=== PATIENT | female | born 1945 | race Caucasian/White ===

== ENCOUNTER 2017-06-05 02:49 | Inpatient (IN) | payer OTHER, MEDICARE ==
[~2017-06-05] VITALS: Ht 154.9 cm; Wt 64.0 kg
[~2017-06-05 02:49] MED LIST: ASPIRIN EC81 M1 PO; DILTIAZEM 24HR120 MG PO; LIVALO2 M1 PO; OTEZLA30 M2 PO; VALSARTAN80 M1 PO; VITAMIN C1000 M4 PO; ZINC CHELATED50 MG PO; ZINC50 M2 PO
[2017-06-05] MEDS ORDERED: CIPRO500 M1 PO (07:31)
--- NOTE | 2017-06-05 10:34 | Admission Core Measures ---
Acute Coronary Syndrome (CM) ACS Core Measures Acute Coronary Syndrome Diagnosis No Congestive Heart Failure (NEW) CHF Core Measures Congestive Heart Failure Diagnosis No Cerebrovascular Accident (NEW) CVA Core Measures CVA/TIA Diagnosis No Venous Thromboembolism VTE Core Susy (View Protocol) VTE Risk Factors Surgery No Mechanical VTE Prophylaxis d/t N/A MechProphylax Ordered No VTE Pharm Prophylaxis d/t NA PharmProphylax ordered Problem List As ranked by this Provider includes Assessment & Plan 1. Unilateral primary osteoarthritis, left hip HOME MEDS Home Med List Apremilast (Otezla) 30 MG TABLET 1 TAB PO BID PSORIASIS (Reported) Ascorbic Acid (Vitamin C) 1,000 MG TABLET 1 TAB PO DAILY SUPPLEMENT (Reported ) Aspirin (Ecotrin*) 81 MG TABLET.DR 1 TAB PO DAILY HEART/BLOOD (Reported) Ciprofloxacin HCl (Cipro) 500 MG TABLET 1 TAB PO BID UTI (Reported) Diltiazem HCl (Diltiazem 24HR ER) 120 MG CAP.ER.24H 1 CAP PO DAILY BP ( Reported) Pitavastatin Calcium (Livalo) 2 MG TABLET 1 TAB PO DAILY CHOLESTEROL ( Reported) Valsartan 80 MG TABLET 1 TAB PO DAILY BP (Reported) ZINC 50 MG TABLET 1 TAB PO DAILY SUPPLEMENT (Reported)
[2017-06-05] MEDS ORDERED: MS CONTIN15 M3 PO (10:36)
[2017-06-05] MEDS ORDERED: COLACE100 M1 PO (10:36)
[2017-06-05] MEDS ORDERED: MIRALAX17 G1 PO (10:36)
[2017-06-05] MEDS ORDERED: PRILOSEC OTC20 M1 PO (10:36)
[2017-06-05] MEDS ORDERED: ASPIRIN EC325 M2 PO (10:36)
[2017-06-05] MEDS ORDERED: DILAUDID2 M1 PO (10:36)
--- NOTE | 2017-06-05 10:40 | Patient Discharge Instructions ---
Discharge Instructions General Discharge Information You were seen/treated for: Left hip pain related to unilateral primary osteoarthritis You had these procedures: Left total hip replacement Watch for these problems: Increasing pain despite the use of pain medication Increasing redness, warmth or swelling Drainage of any type from incision Inability to bear weight on operative leg Persistent nausea and vomiting Fever greater than 101.5 degrees Do not soak the wound: Yes No bath, but you may shower: Yes Other wound care: Please keep wound clean and dry. No ointments or lotions of any type on or near incision at any time. No exceptions. Your dressing will be changed by your nurse on the second day after your surgery. Daily dry dressing changes are recommended each day thereafter. Do not soak your wound in a bath at any time until otherwise indicated by your surgeon. You may shower, please dry wound immediately after shower with a clean towel. Special Instructions: Aspirin: You are taking this medication to help prevent blood clot formation. Please take with food to protect your stomach lining. Please take as directed. Constipation: Pain medication can cause constipation. Dr. Elkins has recommended that you take Colace and miralax each day. You may discontinue this medication if you develop loose stool or diarrhea. If you wish to continue this medication, it is available over the counter. If you are unable to move your bowels after several days, if you are unable to pass gas and are developing bloating, nausea, or vomiting as a result, please contact your doctor. Diet Continue normal diet: Yes Recommended Diet: Regular Activity Full Activity/No Limits: No Activity Self Limited: Yes Pounds, do NOT lift more than: 10 Activity Limited to: Weight bear as tolerated Acute Coronary Syndrome Inclusion Criteria At DC or during hospital stay patient has or had the following: ACS DIAGNOSIS No Discharge Core Measures Meds if any: Prescribed or Continued at Discharge Meds if any: NOT Prescribed or Continued at Discharge Congestive Heart Failure Inclusion Criteria At DC or during hospital stay patient has or had the following: CHF DIAGNOSIS No Discharge Core Measures Meds if any: Prescribed or Continued at Discharge Meds if any: NOT Prescribed or Continued at Discharge Cerebrovascular accident Inclusion Criteria At DC or during hospital stay patient has or had the following: CVA/TIA Diagnosis No Discharge Core Measures Meds if any: Prescribed or Continued at Discharge Meds if any: NOT Prescribed or Continued at Discharge Venous thromboembolism Inclusion Criteria VTE Diagnosis No VTE Type NONE VTE Confirmed by (Test) NONE Discharge Core Measures - Per Current guidelines, there needs to be overlap - treatment for the first 5 days of Warfarin therapy. - If discharged on Warfarin prior to 5 days of - overlap therapy, the patient will need to be - assessed for post discharge needs including - *Post discharge parental anticoagulation - *Warfarin and/or parental anticoagulation education - *Follow up date to check INR post discharge At least 5 days overlap therapy as Inpatient No Meds if any: Prescribed or Continued at Discharge Note: Overlap Therapy is Warfarin and Anticoagulant Meds if any: NOT Prescribed or Continued at Discharge
--- NOTE | 2017-06-05 10:42 | Surgical Discharge Summary ---
Visit Information Visit Dates Admission Date: 06/05/17 Discharge Date: 06/05/17 History of Present Illness Chief Complaint: Left hip pain related to unilateral primary osteoarthritis Surgical History Pertinent Surgical History: non-contributory Review of Systems: See H&P Hospital Course Course Attending Physician: Tony Elkins MD Primary Care Physician: Patient Has No Primary Care Dr Hospital Course: Patient was admitted to the hospital for an elective total joint replacement. The procedure was tolerated well and patient was transferred to a general surgical floor. Diet was advanced and tolerated, and the patient voided spontaneously. The patient was evaluated and treated by physical therapy. At the time of hospital discharge, the vital signs were stable, neurovascular status was intact, and pain was controlled with the use of oral pain medications. Allergies: Coded Allergies: Penicillins (HIVES AND FEET SWELLED 06/04/17) doxycycline (UNKNOWN PER PT DOESNT REMEMBER 06/04/17) sulfamethoxazole (From BACTRIM) (BLOOD DYSCRASIA 06/04/17) trimethoprim (From BACTRIM) (BLOOD DYSCRASIA 06/04/17) Disposition Summary Disposition Principal Diagnosis: Left hip unilateral primary osteoarthritis Additional Diagnosis: None Discharge Disposition: home health services Discharge Instructions General Discharge Information Code Status: Full Code Patient's Diet: Regular, advance as tolerated Patient's Activity: WBAT Follow-Up Instructions/Appts: Follow up with Dr. Elkins in 6 weeks from date of surgery. Please call his office to arrange and/or confirm this appointment. Medications at Discharge Discharge Medications: Stop taking the following medications: Aspirin (Ecotrin*) 81 MG TABLET.DR ORAL DAILY Continue taking these medications: Apremilast (Otezla) 30 MG TABLET 1 Tablet ORAL TWICE DAILY Comments: NOT GIVEN IN HOSPITAL Diltiazem HCl (Diltiazem 24HR ER) 120 MG CAP.ER.24H 1 Capsule ORAL DAILY Comments: NOT GIVEN IN HOSPITAL Valsartan (Valsartan) 80 MG TABLET 1 Tablet ORAL DAILY Comments: NOT GIVEN IN HOSPITAL Pitavastatin Calcium (Livalo) 2 MG TABLET 1 Tablet ORAL DAILY Comments: NOT GIVEN IN HOSPITAL Ascorbic Acid (Vitamin C) 1,000 MG TABLET 1 Tablet ORAL DAILY Comments: NOT GIVEN IN HOSPITAL ZINC (ZINC) 50 MG TABLET 1 Tablet ORAL DAILY Comments: NOT GIVEN IN HOSPITAL Ciprofloxacin HCl (Cipro) 500 MG TABLET 1 Tablet ORAL TWICE DAILY Comments: NOT GIVEN IN HOSPITAL Start taking the following new medications: Aspirin (Ecotrin*) 325 MG TABLET.DR 1 Tablet ORAL TWICE DAILY Qty = 60 No Refills Docusate Sodium (Colace) 100 MG CAPSULE 1 Capsule ORAL TWICE DAILY Qty = 14 No Refills Instructions: DISCONTINUE USE IF YOU DEVELOP LOOSE STOOL OR DIARRHEA Polyethylene Glycol 3350 (Miralax) 17 GRAM POWD.PACK 1 Packet ORAL DAILY Qty = 7 No Refills Instructions: dissolve in water, DISCONTINUE USE IF YOU DEVELOP LOOSE STOOL OR DIARRHEA Morphine Sulfate (Ms Contin) 15 MG TABLET.ER 1 Tablet ORAL TWICE DAILY Qty = 2 No Refills Hydromorphone HCl (Dilaudid) 2 MG TABLET 1-2 Tablet ORAL EVERY 4-6 HOURS NEEDED as needed for PAIN Qty = 36 No Refills Omeprazole Magnesium (Prilosec Otc) 20 MG TABLET.DR 1 Tablet ORAL DAILY Qty = 30 No Refills
--- NOTE | 2017-06-05 12:26 | RADIOLOGY REPORT ---
EXAMINATION: XR HIP, LEFT CLINICAL INFORMATION: Status post left total hip replacement, and tachycardia COMPARISON: None TECHNIQUE: AP and crosstable lateral views of the left hip. FINDINGS: Prosthetic components of the left total hip arthroplasty are appropriately aligned. No periprosthetic fracture. Gas from recent surgery is present in the surrounding soft tissues. IMPRESSION: Appropriate alignment of the left total hip arthroplasty.
[2017-06-05 14:12] VITALS: BP 106/60
--- NOTE | 2017-06-05 14:59 | Operative Report ---
Operative/Inv Procedure Report Surgery Date: 06/05/17 Name of Procedure: Left total hip replacement Pre-Operative Diagnosis: Primary left hip DJD Post-Operative Diagnosis: Same Estimated Blood Loss: 250 Surgeon/Music Professionals: Brittni NIXON,Tony Sarabia Anesthesia: block Operative/Procedure Note Note: Description of Procedure: The patient was taken to the operating room and positively identified. After induction of spinal anesthesia and administration of appropriate pre-operative antibiotics, the patient was positioned supine on the operating room table and all bony prominences were well padded. After performing a surgical timeout, the left lower extremity was prepped and draped in the usual sterile fashion. A direct anterior approach was made to the left hip. The incision was carried sharply through superficial soft tissues to the level of the fascia. Meticulous hemostasis was maintained with Bovie electocautery. The fascia over the tensor fascia garrett muscle was opened sharply and the interval between the TFL and the sartorius was entered bluntly taking care to stay lateral to the lateral femoral cutaneous nerve. Retractors were placed around the femoral neck and the pericapsular fat was identified. The ascending branches of the lateral femoral circumflex vessels were identified and carefully coagulated. The pericapsular fat and anterior capsule were then resected. A napkin ring osteotomy was performed and the femoral head was removed without difficulty. Attention was then turned to the acetabulum. After appropriate placement of retractors, the acetabulum was exposed. Soft tissue was cleaned from the acetabular margin and notch. Overhanging osteophytes were removed and the teardrop was exposed. The acetabulum was then sequentially reamed to accept a 50 mm Vail Tritanium hemispherical solid shell. This was impacted into place in the appropriate position and fitted with a 32 mm Trident X3 zero degree polyethylene insert. Attention was then turned to the femur. After performing the appropriate ligament releases, the proximal femur was exposed. It was then sequentially broached to accept a size 3 Jamir Accolade II stem. This was trialed for leg length and stability. The trial component was removed and the final component was impacted into place. The trunnion was carefully cleaned and fit with a 32 mm, -4 Biolox delta ceramic femoral head. The hip was reduced and put through a full range of motion and found to be stable. The articular space was then irrigated with sterile saline. The periarticular soft tissues were infilitrated with Marcaine. The fascial layer was closed with interrupted #1 vicryl suture and the skin was re-approximated with interrupted 2 -0 vicryl. The skin was closed with a running 3-0 V-Lock suture. Steri-strips and a sterile dressing were applied. The patient was awakened and taken to the recovery room in satisfactory condition.
--- NOTE | 2017-06-05 15:09 | PN- Orthopedic ---
Subjective Subjective: POST-OP CHECK pt sitting in chair eating lunch, no nausea. Denies paresthesias Pain well controlled Ambulated, cleared by PT. No Cp/SOB Objective Vital Signs and I&Os Vital Signs Date Time Temp Pulse Resp B/P B/P Pulse O2 O2 Flow FiO2 Mean Ox Delivery Rate 06/05 1412 97.4 62 18 106/60 98 Room Air Intake & Output 06/05 1600 06/05 0800 06/05 0000 06/04 1600 06/04 0800 06/04 0000 Intake Total 240 Output Total 400 Balance -160 Intake, Oral 240 Output, Urine 400 Patient 141 lb 138 lb Weight Weight Standing Scale Measurement Method Physical Exam: gen- NAD resp- end-expiratory wheeze in left lung base cardio- RRR abd- ND, soft, NT ext- Left hip soft with clean dry dressing. Distal sensory and motor function intact. 2+ PT pulse bilaterally Current Medications: Current Medications Sig/Caroline Start time Last Medication Dose Route Stop Time Status Admin Acetaminophen 1,000 MG Q6 06/05 1200 AC IV 06/06 0601 Acetaminophen 0 .STK-MED ONE 06/05 0747 DC PO Acetaminophen 975 MG ONCE 06/05 0000 DC PO 06/05 2359 Aspirin 325 MG BID 06/05 2200 AC PO Atorvastatin Calcium 10 MG 1700 06/05 1700 DC PO Atorvastatin Calcium 10 MG 1700 06/05 1700 AC PO Cefazolin Sodium 2 GM IQ8 06/05 1600 AC N/A 1 UNIT IV 06/06 0029 Cefazolin Sodium 2,000 MG ONCE 06/05 0000 DC IV 06/05 2359 Ciprofloxacin 500 MG BID 06/05 2200 DC PO 06/09 2159 Ciprofloxacin 500 MG BID 06/05 2200 AC PO 06/09 2159 Dextrose/Sodium 1,000 ML .[id number] 06/05 1415 AC 06/05 Chloride IV 1414 Diltiazem HCl 120 MG DAILY 06/06 1000 DC PO Diltiazem HCl 120 MG DAILY 06/06 1000 AC PO Docusate Sodium 100 MG BID 06/05 2200 AC PO Hydromorphone HCl 2 MG Q4P PRN 06/05 1415 AC 06/05 PO 1447 Hydromorphone HCl 4 MG Q4P PRN 06/05 1415 AC PO Influenza Virus 0.5 ML ONCE ONE 06/05 1500 DC Vaccine IM 06/05 1501 Ketorolac 15 MG Q8P PRN 06/05 1415 AC Tromethamine IV 06/08 1404 Losartan Potassium 50 MG DAILY 06/06 1000 DC PO Losartan Potassium 50 MG DAILY 06/06 1000 AC PO Morphine Sulfate 2 MG Q2P PRN 06/05 1415 AC IV Omeprazole 40 MG DAILY AC 06/06 0700 AC PO Ondansetron HCl 4 MG Q6P PRN 06/05 1415 AC IV Oxycodone HCl 0 .STK-MED ONE 06/05 0746 DC PO Oxycodone HCl 10 MG ONCE 06/05 0000 DC PO 06/05 2359 Polyethylene Glycol 17 GM DAILY 06/06 1000 AC PO Promethazine HCl 12.5 MG Q6P PRN 06/05 1415 AC IV 06/12 1014 Assessment/Plan Assessment/Plan 71yo F SP L DIANA POD0. stable prn PO Pain meds reg diet dvt ppx- ASA 325 BID cleared by PT to go home has [facility] set up for home PT encourage IS DC to home today Core Measures Venous Thromboembolism VTE Risk Factors Surgery No Mechanical VTE Prophylaxis d/t N/A MechProphylax Ordered No VTE Pharm Prophylaxis d/t NA PharmProphylax ordered
== END 2017-06-05 17:11 | disposition home health service (06) | DRG 470 ==
LOC: SDA 02:49 → ENRESERV 12:11 → ENTRNSPT 13:20 → EDTRNSPT 13:47 → EDTRNSPTSTS 13:47 → 2NB 13:59 → CMPTRNSPT 14:11 → ENPENDDIS 15:04 → 2NB 17:11
PROC: 0SRB02A Replacement of Left Hip Joint with Metal on Polyethylene Synthetic Substitute, Uncemented, Open Approach (ICD-10-PCS; principal; 2017-06-05)
DX: M16.12 Unilateral primary osteoarthritis, left hip (principal); E78.5 Hyperlipidemia, unspecified; I10 Essential (primary) hypertension; L40.9 Psoriasis, unspecified; Z87.891 Personal history of nicotine dependence
CPT/HCPCS: 2NBP; 73502-LT; 88304; 97116-GO; 97161-GP; J0131; J0690; J0735; J2550; J3490; J7042; Q2036